=== PATIENT | male | born 1970 | race African-American/Black ===

== ENCOUNTER 2019-08-27 12:17 | Emergency (ER) | payer MEDICARE, MEDICAID ==
[~2019-08-27] VITALS: Ht 175.3 cm; Wt 111.3 kg
[2019-08-27 12:20] VITALS: BP 134/97
[2019-08-27] MEDS ORDERED: GLIP5TAB20 PO (13:06)
[2019-08-27] MEDS ORDERED: ZOLO100T PO (13:06)
[2019-08-27] MEDS ORDERED: PROAAER10 INH (13:06)
[2019-08-27] MEDS ORDERED: MELA5CAP2 PO (13:06)
[2019-08-27] MEDS ORDERED: SIMV10TA21 PO (13:06)
[2019-08-27] MEDS ORDERED: METF-877 PO (13:06)
--- NOTE | 2019-08-27 17:37 | REP ---
CHEST, SINGLE VIEW: Single view of the chest is performed. There are no prior studies for comparison. There is no acute infiltrate or pulmonary edema. Heart does not appear to be significantly enlarged. Right central venous catheter is seen with the tip at the junction of the superior vena cava and right atrium. Electronically Signed by Darell Scott MD 08/27/2019 07:28 P
== END 2019-08-27 14:01 | disposition home or self-care (01) ==
LOC: M ED 12:17
DX: M79.621 Pain in right upper arm (principal); C34.90 Malignant neoplasm of unspecified part of unspecified bronchus or lung; F17.200 Nicotine dependence, unspecified, uncomplicated; Z79.899 Other long term (current) drug therapy; Z79.84 Long term (current) use of oral hypoglycemic drugs